=== PATIENT | female | born 1980 | race Caucasian/White ===

== ENCOUNTER 2017-04-03 05:17 | Inpatient (IN) | payer BC, MEDICAID ==
[2017-04-03] MEDS ORDERED: Acetaminophen 325 MG Tab PO ONE (05:45)
[2017-04-03] MEDS ORDERED: Gabapentin 300 MG Cap PO ONE (05:45)
[2017-04-03] MEDS ORDERED: Scopolamine 1.5 MG Transdermal Patch TRDERM PRN (05:45)
[2017-04-03] MEDS ORDERED: Celecoxib 200 MG Cap PO ONE (05:45)
[2017-04-03] MEDS ORDERED: Acetaminophen 500 MG Tab PO ONE (05:55)
[2017-04-03] MEDS ORDERED: Dextrose 5%-Lactated Ringers 1,000 ML IV SCH (06:15)
[2017-04-03] MEDS ORDERED: cefOXitin 2 GM in Sodium Chloride 0.9% 50 ML IV ONE ×2 (06:15→07:15)
[2017-04-03] MEDS ORDERED: fentaNYL 250 MCG/5 ML SDV ONE (06:52)
[2017-04-03] MEDS ORDERED: Propofol 200 MG/20 ML SDV ONE (06:52)
[2017-04-03] MEDS ORDERED: Dexamethasone 4 MG/ML SDV ONE (06:52)
[2017-04-03] MEDS ORDERED: Neostigmine Methylsulfate 1 MG/ML 5 ML Syringe ONE (06:52)
[2017-04-03] MEDS ORDERED: Succinylcholine/Normal Saline 200 MG/10 ML Syringe ONE (06:52)
[2017-04-03] MEDS ORDERED: Lactated Ringers 1,000 ML ONE ×3 (06:52→08:38)
[2017-04-03] MEDS ORDERED: Ondansetron 4 MG/2 ML SDV ONE (06:52)
[2017-04-03] MEDS ORDERED: Rocuronium 50 MG/5 ML Vial ONE (06:52)
[2017-04-03] MEDS ORDERED: cefOXitin 2 GM Vial ONE (07:02)
[2017-04-03] MEDS ORDERED: Lidocaine 2% 100 MG/5 ML Syringe IVPUSH ONE (07:15)
[2017-04-03] MEDS ORDERED: Ropivacaine 60 ML, Dexamethasone 8 MG, EPINEPHrine 0.4 MG, Sodium Chloride 0.9% 17.6 ML NERVRT SCH ×4 (07:15)
[2017-04-03] MEDS ORDERED: Ketamine 500 MG/5 ML MDV IV SCH (07:15)
[2017-04-03] MEDS ORDERED: Ketoconazole 2% Crm 30 GM Tube TOP PRN (08:37)
[2017-04-03] MEDS ORDERED: Metoclopramide 10 MG/2 ML SDV IVPUSH PRN (12:07)
[2017-04-03] MEDS ORDERED: diphenhydrAMINE 50 MG/ML SDV IVPUSH PRN (12:09)
[2017-04-03] MEDS ORDERED: SCOPOLAMINE PATCH ASK TOP SCH (13:00)
[2017-04-03] MEDS ORDERED: Ondansetron 4 MG/2 ML SDV IVPUSH PRN (13:00)
[2017-04-03] MEDS ORDERED: hydrOXYzine HCl 50 MG/ML SDV IM PRN (13:00)
[2017-04-03] MEDS ORDERED: Labetalol 20 MG/4 ML Syringe IVPUSH PRN (13:00)
[2017-04-03] MEDS ORDERED: Pantoprazole 40 MG Vial IVPUSH SCH (14:00)
[2017-04-03] MEDS: Lidocaine 0.4%/D5W 2 GM/500 ML BAG IV SCH ×2 (15:22→23:34)
[2017-04-03] MEDS: cefOXitin 2 GM in Sodium Chloride 0.9% 50 ML IV SCH ×2 (15:23→19:33)
[2017-04-03] MEDS: Gabapentin 250 MG/5 ML Solution ML 470 ML Bottle PO SCH ×2 (15:25→20:31)
[2017-04-03] MEDS: Acetaminophen Soln 650 MG/20.3 ML UD Cup PO SCH ×2 (15:25→19:33)
[2017-04-03] MEDS: Heparin Sodium 5,000 Units/ML Vial SUBCUT SCH ×2 (15:26→23:51)
[2017-04-03] MEDS ORDERED: MVI, Adult with Vitamin K 10 ML, Thiamine 200 MG, Chromium/Copper/Mang/Selen/Zn 1 ML in... IV SCH ×4 (16:00)
[2017-04-03] MEDS: Ketoconazole 2% Crm 30 GM Tube TOP SCH (20:31)
[2017-04-03] MEDS: Dextrose 5%-Lactated Ringers 1,000 ML IV SCH (22:32)
[2017-04-04] MEDS: cefOXitin 2 GM in Sodium Chloride 0.9% 50 ML IV SCH ×2 (02:06→08:52)
[2017-04-04] MEDS: Acetaminophen Soln 650 MG/20.3 ML UD Cup PO SCH ×4 (02:08→20:42)
[2017-04-04] MEDS ORDERED: Iohexol 647 MG/ML 50 ML SDV PO STA (03:13)
[2017-04-04] MEDS: Dextrose 5%-Lactated Ringers 1,000 ML IV SCH (04:51)
[2017-04-04] MEDS ORDERED: Sodium Chloride 0.9% 10 ML Syringe IV SCH (07:45)
--- NOTE | 2017-04-04 08:32 | CR ---
UGI wo KUB HISTORY: eval RY GBP FINDINGS: Limited upper GI series was obtained without fluoroscopy. Water-soluble contrast was admin istered orally. Immediate along with 15 minute delayed images were obtained. Small gastric pouch is demonstrated. Contrast passes readily through the gastrojejunostomy into loops of jejunum. No obstru ction is identified. There is no contrast extravasation. Surgical drain is noted left upper quadrant . IMPRESSION: No postoperative complication identified status post Bolivar-en-Y gastric bypass.
[2017-04-04] MEDS: Celecoxib 200 MG Cap PO SCH (08:53)
[2017-04-04] MEDS: SCOPOLAMINE PATCH CHECK TOP SCH (08:53)
[2017-04-04] MEDS: Heparin Sodium 5,000 Units/ML Vial SUBCUT SCH ×2 (08:53→17:31)
[2017-04-04] MEDS: Gabapentin 250 MG/5 ML Solution ML 470 ML Bottle PO SCH ×3 (08:53→20:42)
[2017-04-04] MEDS: Ketoconazole 2% Crm 30 GM Tube TOP SCH ×2 (08:54→20:43)
[2017-04-04] MEDS: Pantoprazole 40 MG Tab.CR PO SCH (13:00)
[2017-04-05] MEDS: Heparin Sodium 5,000 Units/ML Vial SUBCUT SCH ×2 (00:20→07:39)
[2017-04-05] MEDS: Acetaminophen Soln 650 MG/20.3 ML UD Cup PO SCH ×2 (02:06→07:39)
[2017-04-05 07:38] VITALS: BP 148/88
[2017-04-05] MEDS: Celecoxib 200 MG Cap PO SCH (07:38)
[2017-04-05] MEDS: Pantoprazole 40 MG Tab.CR PO SCH (07:39)
[2017-04-05] MEDS: Gabapentin 250 MG/5 ML Solution ML 470 ML Bottle PO SCH (08:13)
[2017-04-05] MEDS: SCOPOLAMINE PATCH CHECK TOP SCH (08:42)
[2017-04-05] MEDS ORDERED: Cyanocobalamin (Vitamin B12) 1,000 MCG/ML SDV IM ONE (09:00)
--- NOTE | 2017-04-06 07:45 | DISCH ---
ADMISSION DIAGNOSES: 1. Morbid obesity. 2. Arthritis. 3. Depression. 4. Varicose veins bilateral lower extremities. DISCHARGE DIAGNOSIS: Bolivar-en-Y gastric bypass surgery for morbid obesity on 04/03/2017. HISTORY: Shaniqua Macias is a pleasant 37-year-old female with longstanding history of morbid obesity and increasing comorbidities. After preoperative evaluation and discussion of possible risks and possible complications, she wished to proceed with surgical procedure. HOSPITAL COURSE: Shaniqua had her surgery on 04/03/2017. She had no operative complications. On postop day #1, she was started on a step-2 gastric bypass diet without cereal. Her pain was well managed. Her activity was good. Her oral intake was adequate. She received dietary education and she was ready to be discharged to home on postop day #2. PHYSICAL EXAMINATION: GENERAL: Shaniqua Macias is a 37-year-old female. VITAL SIGNS: Height is 6 feet 1 inch. Weight is 406 pounds. BMI 53.6. TPR 97.7, 60, 20, and blood pressure is 148/88. HEENT: Negative. NECK: Supple. HEART: Regular rate and rhythm. LUNGS: Clear. ABDOMEN: Incisions look good. 4x4s over TYLER drain site. Abdominal binder is on. EXTREMITIES: Without peripheral edema. DISPOSITION: Discharged to home. CONDITION: Stable and improving. FOLLOWUP APPOINTMENT: With Darlin Cho PA-C on 04/18/2017 at 10:00 a.m. at [facility]. MEDICATIONS: Home medications: 1. Tylenol 650 mg oral q.6 hours liquid 20.30 mL cup every 6 hours for 2 weeks, then p.r.n. 2. Celebrex 200 mg p.o. daily, #14. 3. Ketoconazole Nizoral 2% cream use as directed b.i.d. to rash under lower abdominal fold. 4. Multivitamin Complete chewable twice daily. 5. Vitamin B12 at 1000 mcg sublingual daily. 6. She has a Mirena in for control. Stop taking calcium citrate, vitamin D3, fish oil, glucosamine complex, ibuprofen, naproxen, and B complex. DIET: After discharge, step-2 gastric bypass diet without cereal until next appointment. Drink 8 to 10 glasses of water a day. ACTIVITY: After discharge, no lifting greater than 10 pounds for 2 weeks. Activity is walk 6 times daily inside your home. DISCHARGE INSTRUCTIONS: Shower/bathing, may shower. Keep site clean and dry. Wear abdominal binder for 2 weeks, and then as tolerated. Use incentive spirometer 10 times every hour while awake.
--- NOTE | 2017-04-09 12:47 | PN ---
DATE OF SERVICE: 04/04/2017 The patient has been afebrile with stable vital signs. Oral intake has been fairly good. We will saline lock the IV today and go up to a step-2 diet. She is tolerating the present pain management without narcotics satisfactorily. She may be ready for discharge home tomorrow. Stan Goldstein MD /[id number]
--- NOTE | 2017-04-10 14:29 | OR ---
DATE OF PROCEDURE: 04/03/2017 PREOPERATIVE DIAGNOSIS: Morbid obesity. POSTOPERATIVE DIAGNOSES: 1. Morbid obesity. 2. Marked hepatomegaly. 3. Paraesophageal diaphragmatic hernia. 4. Mediastinal lipoma. OPERATIVE PROCEDURES: 1. Laparoscopic Bolivar-en-Y gastric bypass with long limb gastroenterostomy (41831). 2. Geronimo-Cut needle liver biopsy (81780). 3. Repair of paraesophageal diaphragmatic hernia (69898). 4. Excision of mediastinal lipoma (34121). ANESTHESIA: General. PARKING CASHIER: Darlin Cho PA-C. INDICATION FOR PROCEDURE: This is a 37-year-old female presenting with longstanding morbid obesity and increasingly significant comorbidities. After preoperative evaluation and discussion, she wished to proceed with a gastric bypass procedure. Potential risks including bleeding, infection, leaks from various GI tract closures, problems with bowel obstruction over time as well as possibility of cardiopulmonary, septic, or hemorrhagic complications leading to were all discussed, and the patient wishes to proceed. DETAILS OF PROCEDURE: The patient was taken to the operating room and after general endotracheal anesthesia was induced, was placed in a lithotomy position. A gastrointestinal Bolivar limb catheter was placed and the abdomen prepped and draped. Bilateral transabdominal plane blocks were then placed using ultrasound guidance, injecting 40 mL of saline solution containing bupivacaine, dexamethasone, and epinephrine on each side. Following, the block placement at 15 cm inferior, 5 cm left of xiphoid process, transverse incision was made and peritoneal cavity entered under direct vision with Optiview trocar inflated to 15 mmHg pressure of CO2. Laparoscope was reinserted. No underlying trocar insertion site injuries were seen. Following this, 5 additional trocars were placed across the upper mid abdomen and general exploration was undertaken. The patient was noted to have marked hepatomegaly with liver volume being roughly 2 to 3 times normal and biopsies were obtained from the left lobe of the liver. Minimal bleeding from the biopsy sites was controlled with electrocautery. The omentum was then divided in the midline up to the level of the transverse colon. This allowed identification of the small-bowel to the ligament of Treitz. Small bowel was then traced out 200 cm distal to that point, it was divided with a NAV stapler. Small bowel was then traced out with additional 150 cm, where the [id number] enteroenterostomy was accomplished with internal firing of the Endo-NAV 60 mm stapler. The common opening was then closed transversely with the same stapler and angles anastomosed, and mesenteric defect approximated with some 0 Ethibond stitch along with fibrin sealant. The divided end of the Bolivar limb was then from the mesentery for a few centimeters, which allowed an antecolic position of the Bolivar limb up to the level of the gastroesophageal junction without tension. The liver was then retracted anteriorly. The patient was noted to have a fairly large paraesophageal diaphragmatic hernia. This hernia had a significant paraesophageal component with prolapse of the gastric fundus and perigastric fat in a plane anterior to the course of the esophagus noted. This was reduced to the peritoneum to the right and anteriorly to the left of the esophagogastric junction and divided. This allowed dissection of the crura away from the esophagus. The posterior repair was accomplished with 0 Ethibond stitch, reinforced with PTFE pledgets. One additional stitch was then placed anteriorly as well. During the course of the dissection, the mediastinal lipoma was encountered and this was excised and sent for histologic evaluation. At this point, the gastrointestinal balloon catheter was inflated at 15 mL and pulled up snugly against the EG junction, gastric wall over the apex, balloon was then marked with electrocautery, and balloon catheter deflated and withdrawn. The lesser omental tissue adjacent to the gastric cardia was then incised allowing dissection behind the stomach at that level. Pouch formation was initiated with a transverse firing of the NAV stapler at the level of the cauterized braden in the gastric pouch and then completed with 2 additional firings of ANV stapler up to and through the angle of His. Upon completion of the pouch, both staple lines were noted to be intact. The anvil of a 21 mm EEA stapler was then attached to a [place] sump type tube. The latter was brought down through the mouth and taken out of the small opening in the gastric pouch, allowing the anvil likewise to be placed into the gastric pouch. The divided end of the Bolivar limb was then opened and main body EEA stapler passed several centimeters in the small bowel brought up the anvil and united with it creating the gastrojejunostomy. Upon removal of stapler, double donuts of mucosa were noted with it. The small bowel was closed off with vascular staple line. Gastrojejunostomy was reinforced with some 3-0 Vicryl seromuscular stitch along with fibrin sealant. Leak test was accomplished with injection of 120 mL of air in the gastric pouch while submerged with a cefoxitin-containing saline solution. No leaks were identified. Two Zachariah-George drains were placed adjacent to gastrojejunostomy and taken out through subcostal trocar sites with no further problems noted. Trocars were removed. The peritoneal cavity deflated. Incisions were closed with some 4-0 Vicryl skin stitch and then drains were affixed with some 3-0 Vicryl stitch. The patient was taken to the recovery room in satisfactory condition. Physician patient care nursing assistant, Darlin Cho, played an essential role in assisting in this case, helping to position the patient, retract structures as needed, as well as suturing and cutting sutures when indicated. Her presence improved the patient's safety and decreased the operative time. Stan Goldstein MD /[id number]
== END 2017-04-05 11:40 | disposition home or self-care (01) | DRG 403 ==
LOC: JP.SDS 05:17 → JP.SDSSCHI 05:17 → EDSTATUS 07:15 → JP.2SS 10:45
PROVIDERS: ADMIT Surgery; ATTEND Surgery
PROC: 0D164ZA Bypass Stomach to Jejunum, Percutaneous Endoscopic Approach (ICD-10-PCS; principal; 2017-04-03)
PROC: 0FB24ZX Excision of Left Lobe Liver, Percutaneous Endoscopic Approach, Diagnostic (ICD-10-PCS; principal; 2017-04-03)
PROC: 0WBC4ZX Excision of Mediastinum, Percutaneous Endoscopic Approach, Diagnostic (ICD-10-PCS; principal; 2017-04-03)
PROC: 3E0T3BZ Introduction of Anesthetic Agent into Peripheral Nerves and Plexi, Percutaneous Approach (ICD-10-PCS; principal; 2017-04-03)
DX: E66.01 Morbid (severe) obesity due to excess calories (principal); Z68.43 Body mass index [BMI] 50.0-59.9, adult; D17.4 Benign lipomatous neoplasm of intrathoracic organs; Z87.891 Personal history of nicotine dependence; M17.11 Unilateral primary osteoarthritis, right knee; Z97.5 Presence of (intrauterine) contraceptive device; Z91.048 Other nonmedicinal substance allergy status; J30.81 Allergic rhinitis due to animal (cat) (dog) hair and dander; J30.89 Other allergic rhinitis; R16.0 Hepatomegaly, not elsewhere classified
CPT/HCPCS: 36415; 74240; 74240-26; 82962; 86850; 86900; 86901; 87493; 88304; 88305; 88307; 88313; A9270-GY; C9113; J0171; J0694; J1100; J1644; J2001; J2405; J2704; J2795; J3010; J3411; J3420; J7030; J7040; J7042; J7050; J7120; Q9967

== ENCOUNTER 2019-10-18 08:05 | Day surgery (SDC) | payer MEDICAID ==
[~2019-10-18 08:05] MED LIST: Bupivacaine 0.5%/EPINEPHrine 1:200,000 50 ML MDV ONE; Dexamethasone 4 MG/ML SDV ONE; Glycopyrrolate 0.2 MG/ML 5 ML MDV ONE; Neostigmine Methylsulfate 1 MG/ML 5 ML Syringe ONE; Ondansetron 4 MG/2 ML SDV ONE; Propofol 200 MG/20 ML SDV ONE; Rocuronium 50 MG/5 ML Vial ONE; Succinylcholine 200 MG/10 ML MDV ONE; fentaNYL 250 MCG/5 ML SDV ONE
[2019-10-18] MEDS: Dextrose 5%-Lactated Ringers 1,000 ML IV SCH ×2 (09:23→14:40)
[2019-10-18] MEDS ORDERED: Acetaminophen 500 MG Tab PO ONE (09:46)
[2019-10-18] MEDS ORDERED: cefOXitin 2 GM in Sodium Chloride 0.9% 50 ML IV ONE (10:30)
[2019-10-18] MEDS ORDERED: Ropivacaine 50 ML, dexAMETHasone 8 MG, EPINEPHrine 0.4 MG, Sodium Chloride 0.9% 27.6 ML NERVRT SCH ×4 (10:30)
[2019-10-18] MEDS ORDERED: Ketamine 500 MG/5 ML MDV IV SCH (10:30)
[2019-10-18] MEDS ORDERED: Ketorolac 60 MG/2 ML SDV ONE (11:43)
[2019-10-18] MEDS ORDERED: Ondansetron 4 MG/2 ML SDV IVPUSH PRN (14:28)
[2019-10-18] MEDS ORDERED: HYDROmorphone 0.5 MG/0.5 ML Syringe IVPUSH PRN (14:28)
[2019-10-18] MEDS ORDERED: Acetaminophen/HYDROcodone 325-5 MG Tab PO PRN (14:28)
[2019-10-18] MEDS ORDERED: HYDROmorphone 1 MG/ML Syringe IV PRN (14:28)
[2019-10-18] MEDS ORDERED: hydrOXYzine HCl 100 MG/2 ML SDV IM PRN (14:32)
[2019-10-18] MEDS ORDERED: Pantoprazole 40 MG Vial IVPUSH SCH (16:00)
[2019-10-18] MEDS ORDERED: Sodium Ferric Gluconate Cmplex 250 MG in Sodium Chloride 0.9% 100 ML IV SCH (16:00)
[2019-10-18] MEDS: cefOXitin 2 GM in Sodium Chloride 0.9% 50 ML IV SCH ×2 (16:19→21:06)
[2019-10-18] MEDS ORDERED: methylPREDNISolone Sodium Succinate 125 MG/2 ML SDV IVPUSH ONE (19:49)
[2019-10-18] MEDS ORDERED: Acetaminophen 325 MG Tab PO SCH (20:00)
[2019-10-18] MEDS: oxyCODONE 5 MG Tab PO PRN (20:24)
[2019-10-19] MEDS: cefOXitin 2 GM in Sodium Chloride 0.9% 50 ML IV SCH (03:59)
[2019-10-19] MEDS: Dextrose 5%-Lactated Ringers 1,000 ML IV SCH (03:59)
[2019-10-19] MEDS: Acetaminophen 325 MG Tab PO SCH ×2 (04:00→11:07)
[2019-10-19 07:30] VITALS: BP 106/64; PULSE 77
[2019-10-19] MEDS ORDERED: methylPREDNISolone Sodium Succinate 125 MG/2 ML SDV IV ONE ×2 (07:30→08:30)
[2019-10-19] MEDS ORDERED: Sodium Ferric Gluconate Cmplex 250 MG in Sodium Chloride 0.9% 100 ML IV SCH (09:00)
[2019-10-19] MEDS: oxyCODONE 5 MG Tab PO PRN (11:18)
--- NOTE | 2019-10-20 11:02 | DISCH ---
FINAL DIAGNOSES: 1. Biliary dyskinesia associated with chronic cholecystitis and cholelithiasis. 2. Deserosalization of the duodenum secondary to takedown of inflammatory adherence of duodenum to gallbladder. 3. Bariatric surgery status, status post Bolivar-en-Y gastric bypass on 04/05. 4. History of obstructive sleep apnea, not presently requiring CPAP. 5. History of depression. 6. Chronic back and lower extremity joint pains. 7. History of type 2 diabetes mellitus, in remission, status post Bolivar-en-Y gastric bypass. 8. History of zinc deficiency. 9. Iron-deficiency status. OPERATIVE PROCEDURES: Done on 10/18/2019, diagnostic laparoscopy with; 1. Cholecystectomy. 2. Repair of area of deserosalization of duodenum. HOSPITAL COURSE: This is a 39-year-old status post Bolivar-en-Y gastric bypass, who was down around 200 pounds from the preoperative state. She now has developed some episodes of right upper quadrant pain. The patient underwent a CCK-stimulated HIDA scan, which had numerically-normal ejection fraction, but the CCK injection caused a precise reproduction of the patient's pain, and she is therefore to undergo a cholecystectomy. On the day of admission, the patient underwent a laparoscopic cholecystectomy. Gallbladder was obviously quite inflamed and, in fact, had a dense inflammatory adherence to this portion of the duodenum. This was taken down, that area of deserosalized duodenum, reinforced with seromuscular sutures and fibrin sealant. Otherwise, the gallbladder was removed unremarkably. There were some small soft black stones within the gallbladder. Postoperatively, she has had no significant problems. The patient was noted to have low ferritin on preoperative labs and received iron infusion of iron gluconate 250 mg on 10/18/2019 at 11:30. She did have some reaction fdc through the iron infusion on 10/18/2019, and received Solu-Medrol during that and symptoms quickly abated. Prior to today's and any future iron infusions, the patient probably should be pretreated with something like 120 mg of Solu-Medrol. The patient may continue her present home medications plus Tylenol 1 g p.o. q.i.d. p.r.n.; oxycodone 5 mg p.o. q.6 hours p.r.n., # . Followup will be with Darlin Cho at [facility] on 10/28/2019 at 11 a.m.
--- NOTE | 2019-10-21 11:19 | OR ---
DATE OF PROCEDURE: 10/18/2019 SURGEON: Stan Goldstein MD PREOPERATIVE DIAGNOSIS: Biliary dyskinesia. POSTOPERATIVE DIAGNOSES: 1. Biliary dyskinesia with cholelithiasis. 2. Deserosalized area of the duodenum secondary to inflammatory adherence of gallbladder to portion of duodenum. OPERATIVE PROCEDURE: Diagnostic laparoscopy with: 1. Cholecystectomy (39476). 2. Repair of area of deserosalization of duodenum (16246). ANESTHESIA: General. DEALERSHIP MANAGER: Darlin Cho PA-C. INDICATIONS FOR PROCEDURE: This is a 39-year-old presenting with episodes suggestive of recurrent biliary colic. She had a CCK-stimulated HIDA scan, which showed a normal ejection fraction, but the CCK injection resulted in quite precise reproduction of her pain and plan is to proceed with a laparoscopic cholecystectomy. Potential risks including bleeding, infection, injury to underlying viscera, problems with persistent pain following the procedure, as well as remote possibility of cardiopulmonary, septic, or hemorrhagic complications leading to were all discussed, and the patient wishes to proceed. DETAILS OF PROCEDURE: The patient was taken to the operating room and placed in supine position. After general endotracheal anesthesia was induced, the abdomen was prepped and draped. Just to the right of the umbilicus, a transverse incision was made. Peritoneal cavity entered under direct vision with an Optiview trocar and the peritoneal cavity inflated to 15 mmHg pressure with CO2. No underlying trocar insertion site injuries were seen upon reinsertion of the scope, and then a 12 mm trocar was placed in the epigastric area. A single 5 mm trocar was placed in the right subcostal area. Bilateral transversus abdominis plane blocks were then placed and the upper abdomen examined. The patient was noted to have a thick-walled gallbladder which was chronically inflamed and fairly edematous in appearance. Initially, some omental attachments to the gallbladder were taken down with Harmonic scalpel and following that dissection continued down the gallbladder. As the gallbladder neck was approached, it was noted to be densely adherent to the adjacent duodenum. This was dissected off with sharp dissection at this point and this did result in an area of deserosalization of the duodenum, but no full-thickness injury. The gallbladder was then dissected further down until the gallbladder neck and cystic duct junction and adjacent cystic artery were both in view and these were both clipped 3 times proximally and once distally and the gallbladder neck, cystic duct junction, and cystic artery divided, and the gallbladder was then dissected off the gallbladder bed using Harmonic scalpel and this delivered through the epigastric trocar site and it was noted to have multiple small, black, soft stones. The area of the duodenum was then inspected. Two 3-0 Vicryl seromuscular sutures were placed, which appeared to satisfactorily reapproximate the serosa. This was then reinforced with fibrin sealant and then omentum placed over that as well, which became adherent to the area of fibrin sealant. The remainder of the area of the dissection was then inspected noting no bile leaks or bleeding, and the trocars were then sequentially removed. The fascia at the 12 mm site was closed with 0 Vicryl stitch and the skin with 4-0 Vicryl skin stitch. Dressing was applied. There were no evident complications. Job #: [id number] ADDENDUM: Physician senior assistant manager, Darlin Cho, played an essential role in assisting in this case helping to position the patient, retract structures as needed, suturing and cutting sutures when indicated. Her presence improved patient safety and decreased the operative time. Stan Goldstein MD Job #: [id number]
== END 2019-10-19 11:30 | disposition home or self-care (01) ==
LOC: JP.SDS 08:05 → JP.MS 11:45 → JP.SDS 10-19 11:30
PROVIDERS: ATTEND Surgery
DX: K81.1 Chronic cholecystitis (principal); K91.71 Accidental puncture and laceration of a digestive system organ or structure during a digestive system procedure; E11.9 Type 2 diabetes mellitus without complications; G47.33 Obstructive sleep apnea (adult) (pediatric); F32.9 Major depressive disorder, single episode, unspecified; E53.8 Deficiency of other specified B group vitamins; E55.9 Vitamin D deficiency, unspecified; E60 Dietary zinc deficiency; M54.9 Dorsalgia, unspecified; M79.606 Pain in leg, unspecified; Y65.8 Other specified misadventures during surgical and medical care; Y92.234 Operating room of hospital as the place of occurrence of the external cause; Z98.84 Bariatric surgery status; Z79.899 Other long term (current) drug therapy
CPT/HCPCS: 36415; 43840; 47562; 81025; 82247; 84075; 85025; A9270; C9113; J0171; J0694; J1100; J1885; J2405; J2704; J2710; J2795; J2916; J2930; J3010; J3490; J7030; J7042; J7050; 88304; J0330

== ENCOUNTER 2020-04-10 08:14 | Inpatient (IN) | payer MEDICAID ==
[2020-04-10] MEDS ORDERED: Acetaminophen 500 MG Tab PO ONE (08:15)
[2020-04-10] MEDS ORDERED: Naloxone 0.4 MG/ML SDV IVPUSH PRN (09:03)
[2020-04-10] MEDS ORDERED: HYDROmorphone/Normal Saline 15 MG/30 ML PCA IV PRN (09:03)
[2020-04-10] MEDS ORDERED: Meropenem 500 MG SDV ONE (09:12)
[2020-04-10] MEDS ORDERED: Dextrose 5%-Lactated Ringers 1,000 ML IV SCH (09:15)
[2020-04-10] MEDS ORDERED: ceFAZolin 2 GM in Premix Bag 1 BAG IV ONE (09:15)
[2020-04-10] MEDS ORDERED: Neostigmine Methylsulfate 1 MG/ML 5 ML Syringe ONE (11:04)
[2020-04-10] MEDS ORDERED: Glycopyrrolate 0.2 MG/ML 5 ML MDV ONE (11:04)
[2020-04-10] MEDS ORDERED: Dexamethasone 4 MG/ML SDV ONE (11:04)
[2020-04-10] MEDS ORDERED: Rocuronium 50 MG/5 ML Vial ONE (11:04)
[2020-04-10] MEDS ORDERED: Ondansetron 4 MG/2 ML SDV ONE (11:04)
[2020-04-10] MEDS ORDERED: fentaNYL 250 MCG/5 ML SDV ONE ×2 (11:04→12:41)
[2020-04-10] MEDS ORDERED: Succinylcholine 200 MG/10 ML MDV ONE (11:04)
[2020-04-10] MEDS ORDERED: Propofol 200 MG/20 ML SDV ONE ×2 (11:04→14:39)
[2020-04-10] MEDS ORDERED: Mupirocin Oint 22 GM Tube ONE (14:04)
[2020-04-10] MEDS ORDERED: Lactated Ringers 1,000 ML ONE (14:08)
[2020-04-10] MEDS ORDERED: Cyclobenzaprine 10 MG Tab PO PRN (14:44)
[2020-04-10] MEDS ORDERED: Ondansetron 4 MG/2 ML SDV IVPUSH PRN (14:44)
[2020-04-10] MEDS ORDERED: Naloxone 0.4 MG/ML SDV IV PRN (14:44)
[2020-04-10] MEDS ORDERED: hydrOXYzine HCL 100 MG/2 ML SDV IM PRN (14:44)
[2020-04-10] MEDS ORDERED: Lactated Ringers 500 ML IV ONE (16:25)
[2020-04-10] MEDS: Dextrose 5%-Lactated Ringers 1,000 ML IV SCH ×2 (16:42→22:12)
[2020-04-10] MEDS ORDERED: methylPREDNISolone Sodium Succinate 125 MG/2 ML SDV IVPUSH ONE (17:00)
[2020-04-10] MEDS ORDERED: Sodium Ferric Gluconate Cmplex 250 MG in Sodium Chloride 0.9% 100 ML IV ONE (17:00)
[2020-04-10] MEDS: ceFAZolin 2 GM in Premix Bag 1 BAG IV SCH (19:48)
[2020-04-11] MEDS: Dextrose 5%-Lactated Ringers 1,000 ML IV SCH (02:55)
[2020-04-11] MEDS: ceFAZolin 2 GM in Premix Bag 1 BAG IV SCH ×2 (04:38→11:33)
[2020-04-11] MEDS ORDERED: Dextrose 5%-Lactated Ringers 1,000 ML IV SCH (08:30)
[2020-04-11] MEDS: HYDROmorphone 2 MG Tab PO PRN ×2 (12:42→22:51)
[2020-04-11] MEDS ORDERED: methylPREDNISolone Sodium Succinate 125 MG/2 ML SDV IVPUSH ONE (13:45)
[2020-04-11] MEDS ORDERED: Sodium Ferric Gluconate Cmplex 250 MG in Sodium Chloride 0.9% 100 ML IV ONE (14:00)
[2020-04-12 08:48] VITALS: BP 137/50; PULSE 64
--- NOTE | 2020-04-13 15:31 | PN ---
DATE OF SERVICE: 04/11/2020 The patient is postop day #1 from a panniculectomy along with repair of umbilical and incisional hernias. Clearly, she has done well overnight. She is already on iron infusion with some preoperative Solu-Medrol being given. Otherwise, things look great. We will discontinue the Cui catheter, back down on the IV rate, go to a step 4 diet and oral pain medication. We will give her a second dose of iron infusion today, and she will likely be ready for discharge home tomorrow. Stan Goldstein MD /[id number]
--- NOTE | 2020-04-14 09:40 | DISCH ---
FINAL DIAGNOSES: 1. Chronic panniculitis. 2. Umbilical hernia. 3. Incarcerated incisional (trocar site) hernia. SECONDARY DIAGNOSES: 1. Bariatric surgery status, status post Bolivar-en-Y gastric bypass. 2. History of depression. 3. Weightbearing joint chronic pain. 4. Sleep apnea, now largely resolved, not requiring CPAP. 5. Type 2 diabetes mellitus, in remission, status post Bolivar-en-Y gastric bypass. OPERATIVE PROCEDURES: Done on 04/10/2020: 1. Panniculectomy. 2. Repair of umbilical and incarcerated incisional hernias. SUMMARY: This is a 40-year-old status post Bolivar-en-Y gastric bypass, presenting with large abdominal pannus causing chronic panniculitis. On the day of admission, the patient underwent panniculectomy. The removed pannus weighed 10 pounds 12 ounces. She also had an incarcerated trocar site hernia, which was repaired and a small umbilical hernia at the umbilicus, which was concurrently repaired. Postoperatively, she has had no major problems, and she will be discharged home with her usual medications plus Tylenol 1 g q.i.d. p.r.n. and Dilaudid 2 mg p.o. q.4 hours p.r.n. pain, #30. She will be instructed to empty her TYLER drains 4 times a day, and she will follow up with Darlin Cho on 04/21/2020 at 10:00 a.m.
--- NOTE | 2020-04-15 17:24 | OR ---
CORRECTED REPORT DATE OF PROCEDURE: 04/10/2020 SURGEON: Stan Goldstein MD PREOPERATIVE DIAGNOSIS: Chronic panniculitis. POSTOPERATIVE DIAGNOSES: 1. Chronic panniculitis. 2. Non-incarcerated umbilical hernia. 3. Incarcerated incisional hernia. OPERATIVE PROCEDURES: 1. Panniculectomy (28212). 2. Repair of umbilical hernia (21181). 3. Repair of incarcerated incisional hernia (27845). ANESTHESIA: General. RECORDS ASSOCIATE: Darlin Cho PA-C INDICATIONS FOR PROCEDURE: This is a 40-year-old, status post previous Bolivar-en- Y gastric bypass, presenting with a large abdominal pannus causing quite a bit in the way of chronic inflammation on its underside as well as some balance issues related to the asymmetry of her truncal weight. The plan is to proceed with panniculectomy. Potential risks including bleeding, infection, and some cosmetic deformity were reviewed, and the patient wishes to proceed. DETAILS OF PROCEDURE: The patient was taken to the operating room and placed in a supine position. After general endotracheal anesthesia was induced, a Cui catheter was inserted, and the abdomen was prepped and draped. A broad-based transversely-oriented elliptical incision was made and carried down through the skin and subcutaneous tissue, and down to the level of the fascia. The pannus was then reflected off the fascia. This was all done with a Sonicision-type device along with some cautery dissection. In the area to the right of the umbilicus, there was an incarcerated hernia, likely related to previous trocar site. This contained some preperitoneal fat. This was excised flush with the pannus. Subsequently, the patient was noted also to have an umbilical hernia. This did not appear to have any incarcerated component. After removal of the pannus off the remainder of the abdominal wall, the 2 hernias were each closed with [id number] stitches of #2 Vicryl stitch. The weight of the resected pannus was 10 pounds 12 ounces. The incision was then irrigated with meropenem and Zyvox-containing saline solution. Four Zachariah-George drains were then placed through stab and superior main incision. The main incision was then closed with some 3-0 Vicryl stitch deep and then german for the skin. Dressing was applied. The patient was taken to the recovery room in satisfactory condition. Physician sales service assistant, Darlin Cho, played an essential role in assisting in this case; helping to position the patient, retract structures as needed, as well as suturing and cutting sutures when indicated. Her presence improved patient safety and decreased the operative time. Stan Goldstein MD /[id number]
== END 2020-04-12 10:55 | disposition home or self-care (01) | DRG 571 ==
LOC: JP.SDSSCHI 08:14 → EDSTATUS 08:15 → JP.SDS 08:15 → JP.MS 14:40
PROVIDERS: ADMIT Surgery; ATTEND Surgery
PROC: 0JB80ZZ Excision of Abdomen Subcutaneous Tissue and Fascia, Open Approach (ICD-10-PCS; principal; 2020-04-10)
PROC: 0WQF0ZZ Repair Abdominal Wall, Open Approach (ICD-10-PCS; 2020-04-10)
PROC: 0WQF0ZZ Repair Abdominal Wall, Open Approach (ICD-10-PCS; 2020-04-10)
DX: M79.3 Panniculitis, unspecified (principal); K43.0 Incisional hernia with obstruction, without gangrene; K42.9 Umbilical hernia without obstruction or gangrene; F32.9 Major depressive disorder, single episode, unspecified; G89.29 Other chronic pain; G47.30 Sleep apnea, unspecified; E11.9 Type 2 diabetes mellitus without complications; Z79.899 Other long term (current) drug therapy; Z87.891 Personal history of nicotine dependence; Z98.84 Bariatric surgery status
CPT/HCPCS: 81025; 88302; 94762; A9270-GY; J0171; J0330; J0690; J1100; J1170; J2020; J2185; J2405; J2704; J2710; J2795; J2916; J2930; J3010; J3490; J7050; J7120; J7121